=== PATIENT | female | born 1995 | race Two or more races ===

== ENCOUNTER 2025-01-18 17:03 | Emergency (ER) | payer OTHER ==
[~2025-01-18] VITALS: Ht 162.6 cm; Wt 74.5 kg
[2025-01-18 17:57] LABS: Urine Bacteria FEW /hpf (None Seen); Urine Blood 3+ /uL (Negative); Urine Clarity Clear (Clear); Urine Color Colorless (Yellow); Urine Protein, UAD Negative (Negative); Urine Specific Gravity 1.005 (1.001-1.035); Urine Squamous Epithelial Cell FEW /hpf (<5); Urine Urobilinogen Normal (Negative); Urine WBC 3 /HPF (0-5); Urine pH 6.5 (5.0-9.0)
[2025-01-18 17:59] LABS: Basophils # (auto) 0.1 10 ^3/uL (0-0.2); Basophils % (auto) 0.6 % (0.0-2.0); Eosinophils # (auto) 0.2 10 ^3/uL (0-0.8); Eosinophils % (auto) 2.1 % (0.0-7.0); Hematocrit 42.1 % (36.0-46.0); Hemoglobin 14.1 g/dL (12.2-16.2); Lymphocytes # (auto) 3.5 10 ^3/uL (0.4-5.4); Lymphocytes % (auto) 30.5 % (10.0-50.0); Mean Corpuscular Hemoglobin 30.6 pg (28.0-32.0); Mean Corpuscular Hgb Conc. 33.6 g/dL (32.0-36.0); Mean Corpuscular Volume 91.1 fL (80.0-100.0); Monocytes # (auto) 0.7 10 ^3/uL (0-1.3); Monocytes % (auto) 5.8 % (0.0-12.0); Platelet Count (auto) 229 10^3/uL (140-450); Red Blood Cells 4.62 10^6/uL (4.0-5.20); Red Cell Distribution Width 12.6 % (11.8-14.3); White Blood Cell 11.5 10^3/uL (4.4-10.8)
--- NOTE | 2025-01-18 18:16 | ED.PDOC ---
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 Patient reports 5 weeks gestation, . Patient was seen at [facility] for symptoms yesterday, originally stated spotting and light cramping then, was evaluated and discharged. Patient reports bleeding and cramping has worsened today. Patient denies any fever, chills, nausea, diarrhea, back pain. Denies history of STDs Vitals: BP: 117/78 HR:104 Temp: 97.2 F SPO2: 99% RA RR: 16 Past medical history: Denies Past surgical history: Denies Allergies: Denies HPI: Poor Historian. REVIEW OF SYSTEMS: CONSTITUTIONAL: Denies acute: fever, diaphoresis, chills, generalized weakness. HEAD: Denies acute: headache, photophobia Eyes: Denies acute: Double vision, vision loss, eye pain, eye discharge. EARS: Denies acute: tinnitus, hearing loss, ear discharge, ear pain, THROAT: Denies acute: sore throat, swelling, difficulty swallowing , pain with swallowing, change in voice. NECK: Denies acute: neck pain, neck swelling, stiff neck. HEART: Denies acute : chest pain, palpitations, LUNGS: Denies acute: SOB, wheezing, cough, hemoptysis ABDOMEN: Denies acute: Nausea, Vomiting, diarrhea, melena , hematemesis, hematochezia SKIN: Denies acute: rash, redness, lesions, itchiness. EXTREMITIES: Denies acute: calf pain, numbness, tingling, weakness, denies pain in extremity. Denies acute: Low back pain. Neuro: Denies acute: focal neurological deficit, motor or sensory focal neurological deficit, tremors, seizure like activity, confusion, dizziness, change in mental status, loss of bowel or bladder function, cauda equina like symptoms. : Denies acute: dysuria, hematuria, flank pain, increase in urinary frequency. PSYCH: Denies acute: hallucination, suicidal ideation, homicidal ideation. FEMALE: Denies acute: foul odor, unusual discharge. PHYSICAL EXAM: General: ----no----acute distress, awake and alert. Head: normocephalic, atraumatic. Neck: supple, trachea is midline, no swelling. Throat: Normal phonation. Eyes:, no erythema, no purulent discharge, no proptosis, no icterus. Heart: regular rate, regular rhythm, no significant murmur appreciated. Lungs: no apparent respiratory distress, Able to speak in full sentences. No wheezing, no rhonchi, no crackles. No stridors Clear to auscultation bilaterally. Abdomen: Minimal suprapubic tender to palpation, non distended, soft, no guarding, no rebound, + bowel sounds. Neuro: Awake, Alert, oriented to name, self, situation, follows commands GCS=15. Speech is normal. Skin: no petechia, no purpura, no cyanosis, non-pale, not jaundice. Lower extremities: --no - Pitting edema no deformity, no focal swelling, no calf TTP. Makes eye contact. moves all four extremities. Face: no apparent facial droop. Ambulating in the ED independently. 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 Was a procedure done?: No Differential Diagnosis ([employer]PERVISOR) Vaginal Bleeding: - Incomplete, - Inevitable, - Missed, - Threatened, Blood Loss Anemia, Other (Differential diagnosis includes but not limited to DU B, menorrhea, metromenorrhagia, neoplasm, coagulopathy,, trauma, miscarriage, placenta previa, placental abruption, ) X-Ray, Labs, Meds, VS Vital Signs Date Time Temp Pulse Resp B/P (MAP) Pulse Ox O2 Delivery O2 Flow Rate FiO2 01/18/25 22:42 100 18 116/72 (87) 98 01/18/25 22:05 98.1 81 16 97/56 (70) 98 98.1 01/18/25 17:32 97.2 104 16 117/78 (91) 99 97.2 Lab Test 01/18/25 17:36 01/18/25 17:15 Range/Units White Blood Count 11.5 H 4.4-10.8 10^3/uL Red Blood Count 4.62 4.0-5.20 10^6/uL Hemoglobin 14.1 12.2-16.2 g/dL Hematocrit 42.1 36.0-46.0 % Mean Corpuscular Volume 91.1 80.0-100.0 fL Mean Corpuscular Hemoglobin 30.6 28.0-32.0 pg Mean Corpuscular Hemoglobin Concent 33.6 32.0-36.0 g/dL Red Cell Distribution Width 12.6 11.8-14.3 % Platelet Count 229 140-450 10^3/uL Mean Platelet Volume 7.9 6.9-10.8 fL Neutrophils (%) (Auto) 61.0 37.0-80.0 % Lymphocytes (%) (Auto) 30.5 10.0-50.0 % Monocytes (%) (Auto) 5.8 0.0-12.0 % Eosinophils (%) (Auto) 2.1 0.0-7.0 % Basophils (%) (Auto) 0.6 0.0-2.0 % Neutrophils # (Auto) 7.0 1.6-8.6 10 ^3/uL Lymphocytes # (Auto) 3.5 0.4-5.4 10 ^3/uL Monocytes # (Auto) 0.7 0-1.3 10 ^3/uL Eosinophils # (Auto) 0.2 0-0.8 10 ^3/uL Basophils # (Auto) 0.1 0-0.2 10 ^3/uL Nucleated Red Blood Cells 0.0 % Sodium Level 140 136-145 mmol/L Potassium Level 4.3 3.5-5.1 mmol/L Chloride Level 107 98-107 mmol/L Carbon Dioxide Level 26 20-31 mmol/L Anion Gap 7 5-15 Blood Urea Nitrogen 10 9-23 mg/dL Creatinine 0.81 0.550-1.02 mg/dL Glomerular Filtration Rate Calc 99 >90 mL/min BUN/Creatinine Ratio 12.3 10.0-20.0 Serum Glucose 93 74-106 mg/dL Calcium Level 9.8 8.7-10.4 mg/dL Total Bilirubin 0.4 0.2-1.0 mg/dL Aspartate Amino Transferase (AST) 21 13-40 U/L Alanine Aminotransferase (ALT) 28 7-40 U/L Alkaline Phosphatase 95 46-116 U/L Total Protein 8.2 5.7-8.2 g/dL Albumin 5.1 H 3.2-4.8 g/dL Lipase 36 12-53 U/L Beta HCG, Quantitative 410.4 H 1.5-4.2 mIU/mL Urine Color Colorless Yellow Urine Clarity Clear Clear Urine pH 6.5 5.0-9.0 Urine Specific [place] 1.005 1.001-1.035 Urine Protein Negative Negative Urine Ketones Negative Negative Urine Blood 3+ H Negative /uL Urine Nitrite Negative Negative Urine Bilirubin Negative Negative Urine Urobilinogen Normal Negative mg/dL Urine Leukocyte Esterase Negative Negative /uL Urine RBC 8 0 - 4 /hpf Urine Microscopic WBC 3 0-5 /HPF Urine Squamous Epithelial Cells Few <5 /hpf Urine Bacteria Few H None Seen /hpf Urine Glucose Normal Normal mg/dL Current Medications Medications (Trade) Dose Ordered Sig/Salazar Route Start Time Stop Time Status Last Admin Sodium Chloride 1,000 ml @ 1,000 mls/hr Q1H ONCE IV 01/18/25 22:07 01/18/25 23:06 DC 01/18/25 22:19 [place] [id number] Ph: [phone] DIAGNOSTIC IMAGING Diagnostic Imaging Report : [id number] Signed PATIENT: INA FLORES ACCT: [id number] UNIT: [id number] : 1995 LOC: ER ROOM / BED: / AGE / SEX: 29 / F ADM STATUS: REG ER SERVICE [id number] ORDERING PHYSICIAN: LEIGH DOWNEY DO PROCEDURE(s): OB4US - OB ULTRASOUND COMP LESS 14WKS REASON: vag bleed, abd cramps ORDER NUMBER(s): [id number], ACCESSION NUMBER(s): [id number] OB EVALUATION, LESS THAN 14 WEEKS CLINICAL HISTORY: vag bleed, abd cramps COMPARISON: None TECHNIQUE: Grayscale, color-flow Doppler, and spectral Doppler ultrasound of the pelvis is performed by transabdominal and transvaginal technique. FINDINGS: Uterus measures 7.1 x 4.1 x 3.3 cm. Trace fluid in the lower endometrial canal. No intrauterine gestational sac or pole identified at this time. Small subcentimeter anechoic structure seen in the cervix. The right ovary measures 1.8 x 1.5 x 1.0 cm. The left ovary measures 2.6 x 2.1 x 1.9 cm. Left ovarian cystic structure measuring approximately 1.7 cm in diameter. Both ovaries demonstrate dopplerable blood flow on spectral analysis. Small amount of free fluid seen in the cul-de-sac. IMPRESSION: No definite evidence of intrauterine at this time. Given the above findings, differential diagnosis at this time includes early , incompl ete miscarriage as well as ectopic gestation. Recommend short-term interval follow-up as well as correlation with serial beta HCG testing. ATED BY: ROLANDO MAYORGA MD DICTATED DATE/TIME: 01/18/252044 SIGNED BY: ROLANDO MAYORGA MD SIGNED DATE/TIME: 01/18/252044 CC: Time of 1ST Reevaluation: 18:12 Reevaluation 1ST: Unchanged Patient Education/Counseling: Diagnosis, Treatment Family Education/Counseling: Diagnosis, Treatment Comments Patient presented with the above HPI.--vaginal bleed in ----workup was initiated. patient was found with the above mentioned diagnosis. the following medications were ordered: please refer to order lists of meds and tests obtained by myself Dr. Downey. Patient ED course and VS have been stabilized. Patient has been reassessed in the ED and remained in a stable condition. Pertinent incidental findings were discussed with the patient and/or family. Patient/family voices understanding and is agreeable with plan. Patient has been observed in the ED adequate length of time to insure improvement/stability. Escalation of care considered: Consideration of escalation to observation or admission Patient was DISCHARGED home in a stable condition. All the reports of any imaging studies that were ordered by myself were reviewed by myself. Departure 1 Departure Time of Disposition: 19:44 Impression: Primary Impression: Vaginal abnormality in Additional Impressions: UTI in Threatened Miscarriage Disposition: HOME / SELF CARE / HOMELESS Condition: Stable Additional Instructions: Additional discharge instructions: You MUST follow-up with your primary care/family doctor in 1 to 2 days. If you are unable to see your primary care/family doctor, please return to our emergency room for re-assessment and re-evaluation in 1 to 2 days. Return to the emergency room here in our facility or to the nearest ER [facility] if your symptoms change or worsen. CONSULTATIONS: you MUST Follow-up for consultation as soon as possible with: Gyne doctor in 1-2 days. You MUST call the consultants office yourself to make an appointment. You may need to arrange that through your insurance and/or your primary/family doctor. If you are unable to see the review consultant in 1 to 2 days, you must return to our emergency room (or any other ER of your choice) for re-assessment and re- evaluation. Adequate fluid hydration. Absolute pelvic rest. Repeat beta-hCG levels in 48-72 hours. Repeat pelvic ultrasound in 4-5 days. Below is a copy of your radiological report for follow up: [place] [id number] Ph: [phone] DIAGNOSTIC IMAGING Diagnostic Imaging Report : [id number] Signed PATIENT: INA FLORES ACCT: [id number] UNIT: [id number] : 1995 LOC: ER ROOM / BED: / AGE / SEX: 29 / F ADM STATUS: REG ER SERVICE [id number] ORDERING PHYSICIAN: LEIGH DOWNEY DO PROCEDURE(s): OB4US - OB ULTRASOUND COMP LESS 14WKS REASON: vag bleed, abd cramps ORDER NUMBER(s): [id number], ACCESSION NUMBER(s): [id number] OB EVALUATION, LESS THAN 14 WEEKS CLINICAL HISTORY: vag bleed, abd cramps COMPARISON: None TECHNIQUE: Grayscale, color-flow Doppler, and spectral Doppler ultrasound of the pelvis is performed by transabdominal and transvaginal technique. FINDINGS: Uterus measures 7.1 x 4.1 x 3.3 cm. Trace fluid in the lower endometrial canal. No intrauterine gestational sac or pole identified at this time. Small subcentimeter anechoic structure seen in the cervix. The right ovary measures 1.8 x 1.5 x 1.0 cm. The left ovary measures 2.6 x 2.1 x 1.9 cm. Left ovarian cystic structure measuring approximately 1.7 cm in diameter. Both ovaries demonstrate dopplerable blood flow on spectral analysis. Small amount of free fluid seen in the cul-de-sac. IMPRESSION: No definite evidence of intrauterine at this time. Given the above findings, differential diagnosis at this time includes early , incomplete miscarriage as well as ectopic gestation. Recommend short-term i nterval follow-up as well as correlation with serial beta HCG testing. ATED BY: ROLANDO MAYORGA MD DICTATED DATE/TIME: 01/18/252044 SIGNED BY: ROLANDO MAYORGA MD SIGNED DATE/TIME: 01/18/252044 CC: e-Prescriptions Cephalexin Monohydrate (Cephalexin) 500 Mg Tab 1 TAB PO TID for 5 Days, #15 TAB Prov: LEIGH DOWNEY DO 01/18/25 Discharged With: Self, Spouse Critical Care Note Critical Care Time?: No I personally scribed for LEIGH DOWNEY DO ([email or web address]) on 01/18/25 at 18:16. Electronically submitted by Autumn Cristina ([facility]). I personally scribed for LEIGH DOWNEY DO ([email or web address]) on 01/18/25 at 20:04. Electronically submitted by Autumn rCistina ([facility]). LEIGH DOWNEY DO Jan 18, 2025 18:16
[2025-01-18 18:18] LABS: Alanine Aminotransferase 28 U/L (7-40); Alkaline Phosphatase 95 U/L (46-116); Anion Gap 7 (5-15); Aspartate Aminotransferase 21 U/L (13-40); BUN/Creatinine Ratio 12.3 (10.0-20.0); Blood Urea Nitrogen 10 mg/dL (9-23); Calcium 9.8 mg/dL (8.7-10.4); Carbon Dioxide 26 mmol/L (20-31); Chloride 107 mmol/L (98-107); Glucose 93 mg/dL (74-106); Lipase 36 U/L (12-53); Potassium 4.3 mmol/L (3.5-5.1); Sodium 140 mmol/L (136-145); Total Protein 8.2 g/dL (5.7-8.2)
[2025-01-18 18:19] LABS: Bilirubin, Total 0.4 mg/dL (0.2-1.0)
[2025-01-18 19:22] LABS: Albumin 5.1 g/dL (3.2-4.8)
--- NOTE | 2025-01-18 20:47 | DVH ---
OB EVALUATION, LESS THAN 14 WEEKS CLINICAL HISTORY: vag bleed, abd cramps COMPARISON: None TECHNIQUE: Grayscale, color-flow Doppler, and spectral Doppler ultrasound of the pelvis is performed by transabdominal and transvaginal technique. FINDINGS: Uterus measures 7.1 x 4.1 x 3.3 cm. Trace fluid in the lower endometrial canal. No intrauterine gestational sac or pole identified at this time. Small subcentimeter anechoic structure seen in the cervix. The right ovary measures 1.8 x 1.5 x 1.0 cm. The left ovary measures 2.6 x 2.1 x 1.9 cm. Left ovaria n cystic structure measuring approximately 1.7 cm in diameter. Both ovaries demonstrate dopplerable b lood flow on spectral analysis. Small amount of free fluid seen in the cul-de-sac. IMPRESSION: No definite evidence of intrauterine at this time. Given the above findings, differential d iagnosis at this time includes early , incomplete miscarriage as well as ectopic gestation. Recommend short-term interval follow-up as well as correlation with serial beta HCG testing.
[2025-01-18] MEDS ORDERED: CEPH500T PO (21:37)
[2025-01-18 22:05] VITALS: TEMP 98.1
[2025-01-18] MEDS: SODIUM CHLORIDE 0.9% 1,000 ML IV ONE (22:19)
[2025-01-18 22:42] VITALS: BP 116/72; PULSE 100; RESP 18; O2SAT 98
== END 2025-01-18 22:52 | disposition home or self-care (01) ==
LOC: ER 17:07
DX: O20.0 Threatened abortion (principal); O23.41 Unspecified infection of urinary tract in pregnancy, first trimester; N39.0 Urinary tract infection, site not specified; O34.61 Maternal care for abnormality of vagina, first trimester; Z79.899 Other long term (current) drug therapy
CPT/HCPCS: 36415; 76801; 76817; 80053; 81001; 83690; 84702; 85025; 86850; 86900; 86901; 96360; 99284; J7030